=== PATIENT | female | born 1980 | race Caucasian/White ===

== ENCOUNTER 2024-12-31 23:21 | Inpatient (IN) | payer OTHER ==
[~2024-12-31] VITALS: Ht 170.2 cm; Wt 66.2 kg
[2025-01-01] MEDS ORDERED: IV NS 0.9% 1,000 ML BAG IV ONE (01:30)
[2025-01-01] MEDS ORDERED: ACETAMINOPHEN ES 500 MG TABLET ONE (01:34)
[2025-01-01] MEDS ORDERED: ONDANSETRON HCL/PF 4 MG/2 ML VIAL ONE (01:34)
[2025-01-01] MEDS ORDERED: KETOROLAC TROMETHAMINE INJ 30 MG/ML VIAL ONE (01:34)
[2025-01-01] MEDS: ONDANSETRON HCL/PF 4 MG/2 ML VIAL IVP ONE (01:54)
[2025-01-01] MEDS: KETOROLAC TROMETHAMINE 15 MG/ML VIAL IV ONE (01:54)
[2025-01-01] MEDS: ACETAMINOPHEN 325 MG TABLET PO ONE (01:54)
[2025-01-01] MEDS: IV NS 0.9% 1,000 ML BAG IV ONE (01:54)
[2025-01-01 01:55] LABS: BASOPHILS # (AUTO) 0.1 K/uL (0.0-0.2); BASOPHILS % (AUTO) 0.6 % (0.0-2.0); EOSINOPHILS % (AUTO) 0.1 % (0.0-6.0); HEMATOCRIT 40 % (33-45); HEMOGLOBIN 14.2 g/dL (11.5-14.8); LYMPHOCYTES % (AUTO) 6.8 % (20.0-44.0); MEAN CORPUSCULAR HEMOGLOBIN 34 PG (26.0-33.0); MEAN CORPUSCULAR HGB CONC 36 g/dl (31.0-36.0); MEAN CORPUSCULAR VOLUME 95 fL (82-100); MONOCYTES # (AUTO) 1.2 K/uL (0.1-1.30); MONOCYTES % (AUTO) 8.8 % (2.0-12.0); NEUTROPHILS # (AUTO) 11.8 K/uL (1.8-8.9); NEUTROPHILS % (AUTO) 83.7 % (43.0-81.0); PLATELET COUNT (AUTO) 277 K/uL (150-450); RED BLOOD CELL COUNT(AUTO) 4.23 MIL/uL (4.0-5.2); RED CELL DISTRIBUTION WIDTH 14.8 % (11.5-15.0)
[2025-01-01 02:12] LABS: INR 1.03 (0.91-1.10); PARTIAL THROMBOPLASTIN TIME 27.9 SEC (24.3-34.3); PROTHROMBIN TIME 10.9 SECS (9.2-11.1)
[2025-01-01 02:27] LABS: PREGNANCY TEST URINE QUAL NEGATIVE (NEGATIVE)
[2025-01-01 02:42] LABS: AMPHETAMINE, URINE NEGATIVE (NEGATIVE); BARBITURATE, URINE NEGATIVE (NEGATIVE); BENZODIAZEPINE, URINE NEGATIVE (NEGATIVE); CANNABINOID, URINE NEGATIVE (NEGATIVE); COCCAINE, URINE NEGATIVE (NEGATIVE); OPIATE, URINE NEGATIVE (NEGATIVE); PHENCYCLIDINE SCREEN,URINE NEGATIVE (NEGATIVE)
[2025-01-01 02:52] LABS: APPEARANCE,URINE CLEAR (CLEAR); BILIRUBIN,URINE 1+ (NEGATIVE); BLOOD, URINE 2+ Ery/uL (NEGATIVE); COLOR,URINE YELLOW (YELLOW); KETONES,URINE 1+ mg/dL (NEGATIVE); LEUKOCYTE ESTERASE ,URINE 1+ (NEGATIVE); NITRITE, URINE POSITIVE (NEGATIVE); PROTEIN,URINE 2+ mg/dl (NEGATIVE); UGLUCOSE NEGATIVE (NEGATIVE); UROBILINOGEN,URINE 0.2 EU/dL (0.2)
[2025-01-01 02:56] LABS: CALCIUM, SERUM 10.3 mg/dL (8.5-10.1); POTASSIUM 3.7 mmol/L (3.5-5.1)
[2025-01-01 03:09] LABS: LACTIC ACID 2.4 mmol/L (0.4-2.0)
[2025-01-01 03:11] LABS: ALBUMIN 4.2 g/dL (3.4-5.0); BILIRUBIN,DIRECT 0.3 mg/dL (0.0-0.2); BILIRUBIN,TOTAL 0.9 mg/dL (0.2-1.0); TOTAL PROTEIN, SERUM 9.1 g/dL (6.4-8.2)
[2025-01-01] MEDS ORDERED: CEFTRIAXONE 1GM BAG (ER ONLY) 50 ML IV ONE (03:17)
[2025-01-01 03:23] LABS: ADD URINE CULTURE YES; BACTERIA,URINE 4+ /HPF (None Seen); RBC,URINE 21-50 /HPF (0-2); WBC,URINE 51-80 /HPF (0-3)
[2025-01-01] MEDS: CEFTRIAXONE 1GM BAG (ER ONLY) 1 GM/50 ML PIGGYBACK IV ONE (03:31)
[2025-01-01] MEDS ORDERED: Z GUARD REMEDY 4 OZ OINT TP PRN (04:00)
[2025-01-01] MEDS ORDERED: ONDANSETRON HCL/PF 4 MG/2 ML VIAL IVP PRN (04:00)
[2025-01-01] MEDS ORDERED: PANTOPRAZOLE 40 MG TABLET.DR PO ONE (07:31)
[2025-01-01] MEDS: PANTOPRAZOLE 40 MG TABLET.DR PO SCH (07:36)
[2025-01-01] MEDS ORDERED: ACETAMINOPHEN 325 MG TABLET ONE (08:07)
[2025-01-01] MEDS ORDERED: CHLORDIAZEPOXIDE HCL 25 MG CAPSULE ONE (08:07)
[2025-01-01] MEDS ORDERED: THIAMINE HCL 100 MG TABLET ONE (08:08)
[2025-01-01] MEDS ORDERED: FOLIC ACID 1 MG TABLET ONE (08:08)
[2025-01-01] MEDS: ACETAMINOPHEN 325 MG TABLET PO PRN (08:11)
[2025-01-01] MEDS: CHLORDIAZEPOXIDE HCL 25 MG CAPSULE PO SCH (08:28)
[2025-01-01] MEDS: FOLIC ACID 1 MG TABLET PO SCH (08:28)
[2025-01-01] MEDS: THIAMINE HCL 100 MG TABLET PO SCH (08:29)
[2025-01-01] MEDS ORDERED: LORAZEPAM 1 MG TABLET ONE (08:41)
[2025-01-01] MEDS: LORAZEPAM 1 MG TABLET PO PRN (08:42)
[2025-01-01] MEDS ORDERED: BENA40TA8 PO (14:30)
[2025-01-01] MEDS ORDERED: ATEN25TA PO (14:30)
[2025-01-01] MEDS ORDERED: IBUP-1953 PO (14:30)
[2025-01-01 15:02] VITALS: BP 117/85; TEMP 102.9; O2SAT 95
[2025-01-01] MEDS: IV NS 0.9% 1,000 ML IV PRN (15:11)
[2025-01-01 16:00] VITALS: BP 120/79; TEMP 102.7; O2SAT 99
[2025-01-01] MEDS: HYDROCODONE/APAP 5/325MG TABLET PO PRN (20:27)
[2025-01-02] MEDS: CEFTRIAXONE 1 G in IV D5W 50 ML IV SCH (03:00)
[2025-01-02 06:44] LABS: CALCIUM, SERUM 8.7 mg/dL (8.5-10.1); CREATININE 0.9 mg/dL (0.6-1.3); MAGNESIUM 1.9 mg/dL (1.8-2.4); PHOSPHORUS 1.2 mg/dL (2.5-4.9); POTASSIUM 3.5 mmol/L (3.5-5.1)
[2025-01-02 06:51] LABS: BASOPHILS % (AUTO) 0.5 % (0.0-2.0); EOSINOPHILS % (AUTO) 0.1 % (0.0-6.0); HEMATOCRIT 34 % (33-45); LYMPHOCYTES # (AUTO) 0.9 K/uL (0.8-4.8); MEAN CORPUSCULAR HEMOGLOBIN 34 PG (26.0-33.0); MEAN CORPUSCULAR HGB CONC 36 g/dl (31.0-36.0); MEAN CORPUSCULAR VOLUME 96 fL (82-100); MONOCYTES # (AUTO) 1.5 K/uL (0.1-1.30); MONOCYTES % (AUTO) 16.9 % (2.0-12.0); NEUTROPHILS # (AUTO) 6.3 K/uL (1.8-8.9); NEUTROPHILS % (AUTO) 72.5 % (43.0-81.0); PLATELET COUNT (AUTO) 192 K/uL (150-450); RED CELL DISTRIBUTION WIDTH 14.2 % (11.5-15.0); WHITE BLOOD COUNT (AUTO) 8.7 K/uL (4.3-11.0)
[2025-01-02 07:00] VITALS: BP 135/97; TEMP 98.8; O2SAT 100
[2025-01-02] MEDS ORDERED: ATENOLOL 25 MG TABLET PO PRN (08:30)
[2025-01-02] MEDS: BENAZEPRIL HCL 20 MG TABLET PO SCH (09:37)
[2025-01-02 11:30] VITALS: BP 145/100; TEMP 97.3; O2SAT 100
[2025-01-02] MEDS: K PHOS NEUTRAL 250 MG TABLET PO ONE (15:45)
[2025-01-02 16:00] VITALS: BP 135/102; TEMP 99.5; O2SAT 99
[2025-01-02 20:00] VITALS: BP 131/92; TEMP 98.8; O2SAT 98
[2025-01-03] VITALS: BP_SYST 149; BP_SYST 153; BP_DIAS 110; BP_DIAS 82; TEMP 98.1; TEMP 99.9; O2SAT 100; O2SAT 96
[2025-01-03 04:00] VITALS: BP 153/93; TEMP 98.1; O2SAT 99
[2025-01-03 06:56] LABS: CALCIUM, SERUM 8.8 mg/dL (8.5-10.1); CREATININE 0.6 mg/dL (0.6-1.3); POTASSIUM 3.1 mmol/L (3.5-5.1)
[2025-01-03 06:57] LABS: BASOPHILS % (AUTO) 0.7 % (0.0-2.0); EOSINOPHILS # (AUTO) 0.1 K/uL (0.0-0.7); EOSINOPHILS % (AUTO) 1.1 % (0.0-6.0); HEMATOCRIT 36 % (33-45); HEMOGLOBIN 12.2 g/dL (11.5-14.8); LYMPHOCYTES # (AUTO) 1.3 K/uL (0.8-4.8); LYMPHOCYTES % (AUTO) 23.3 % (20.0-44.0); MEAN CORPUSCULAR HEMOGLOBIN 33 PG (26.0-33.0); MEAN CORPUSCULAR HGB CONC 34 g/dl (31.0-36.0); MEAN CORPUSCULAR VOLUME 95 fL (82-100); MONOCYTES # (AUTO) 0.9 K/uL (0.1-1.30); MONOCYTES % (AUTO) 16.9 % (2.0-12.0); NEUTROPHILS # (AUTO) 3.2 K/uL (1.8-8.9); PLATELET COUNT (AUTO) 203 K/uL (150-450); RED BLOOD CELL COUNT(AUTO) 3.73 MIL/uL (4.0-5.2); RED CELL DISTRIBUTION WIDTH 14.6 % (11.5-15.0); WHITE BLOOD COUNT (AUTO) 5.5 K/uL (4.3-11.0)
[2025-01-03 07:30] VITALS: BP 135/96; TEMP 98.8; O2SAT 96
[2025-01-03 10:00] VITALS: BP 149/100
[2025-01-03] MEDS: POTASSIUM CHLORIDE 20 MEQ TAB.PRT.SR PO ONE (11:21)
[2025-01-03 16:00] VITALS: BP 141/107; TEMP 98.8; O2SAT 99
[2025-01-03] MEDS: FLUCONAZOLE (100 MG) 100 MG TABLET PO SCH (16:25)
[2025-01-03 20:00] VITALS: BP 149/105; TEMP 99.3; O2SAT 100
[2025-01-03] MEDS: MAGNESIUM HYDROXIDE 30 ML UDC PO PRN (21:35)
[2025-01-04] VITALS: BP 154/109; TEMP 98.1; O2SAT 98
[2025-01-04 04:00] VITALS: BP 159/114; TEMP 99.1; O2SAT 100
[2025-01-04 08:00] VITALS: BP 169/117; TEMP 100.9
[2025-01-04 08:20] VITALS: BP 169/117
[2025-01-04] MEDS: ATENOLOL 25 MG TABLET PO PRN (08:20)
[2025-01-04] MEDS ORDERED: LACT1CAP63 PO (10:35)
[2025-01-04] MEDS ORDERED: ONDA4TAB5 PO (10:35)
[2025-01-04] MEDS ORDERED: CEPH-570 PO (10:35)
[2025-01-04] MEDS ORDERED: HYDR-3972 PO (10:35)
[2025-01-04] MEDS ORDERED: THIA100T88 PO (10:35)
[2025-01-04] MEDS ORDERED: CHLO25CA22 PO (10:35)
== END 2025-01-04 11:00 | disposition home or self-care (01) | DRG 720 ==
LOC: ER 23:28 → MS IN 01-01 04:04 → MED 01-01 11:50 → TELE 01-01 13:58
PROVIDERS: ADMIT Nurse Practitioner Acute Care; ATTEND Nurse Practitioner Acute Care
DX: A41.9 Sepsis, unspecified organism (principal); E87.20 Acidosis, unspecified; E87.1 Hypo-osmolality and hyponatremia; N10 Acute pyelonephritis; E86.0 Dehydration; E86.1 Hypovolemia; Z98.1 Arthrodesis status; F19.10 Other psychoactive substance abuse, uncomplicated; F10.10 Alcohol abuse, uncomplicated; Y90.0 Blood alcohol level of less than 20 mg/100 ml; B96.20 Unspecified Escherichia coli [E. coli] as the cause of diseases classified elsewhere; E87.6 Hypokalemia; Z79.899 Other long term (current) drug therapy
CPT/HCPCS: 36415; 71045-TC; 80048-TC; 80076-TC; 81001; 83605-TC; 83690-TC; 83735-TC; 84100-TC; 84484-TC; 84703-TC; 85025-TC; 85730-TC; 87040-TC; 87086-TC; 87186-TC; G0378; G0480; J0696; J1885; J2405; J7030; J7060